=== PATIENT | male | born 1985 | race African-American/Black ===

== ENCOUNTER 2020-12-04 17:27 | Emergency (ER) | payer MEDICAID ==
[~2020-12-04] VITALS: Ht 177.8 cm; Wt 112.5 kg
[2020-12-04 19:10] VITALS: BP 136/88
== END 2020-12-04 19:24 | disposition home or self-care (01) ==
LOC: ER 17:27
DX: S80.811A Abrasion, right lower leg, initial encounter (principal); S71.132A Puncture wound without foreign body, left thigh, initial encounter; W54.0XXA Bitten by dog, initial encounter; Y93.89 Activity, other specified; Y92.89 Other specified places as the place of occurrence of the external cause; Y99.8 Other external cause status
CPT/HCPCS: 12001